=== PATIENT | female | born 1975 | race Caucasian/White ===

== ENCOUNTER 2023-02-18 04:42 | Day surgery (SDC) | payer OTHER ==
[2023-02-11 10:36] VITALS: BMI 30.7
[2023-02-18] MEDS ORDERED: PROPOFOL 20 ML ONE (07:27)
[2023-02-18] MEDS ORDERED: LIDOCAINE HCL 1%, 10 MG/ML (20ML VIAL) ONE (07:28)
[2023-02-18] MEDS ORDERED: METHYLENE BLUE 50 MG/10 ML AMPUL ONE (07:28)
[2023-02-18] MEDS ORDERED: MIDAZOLAM HCL 2 MG/2 ML SINGLE DOSE VIAL ONE (07:28)
[2023-02-18] MEDS ORDERED: ROCURONIUM BROMIDE 50 MG/5 ML SYRINGE ONE (07:28)
[2023-02-18] MEDS ORDERED: ISOSULFAN BLUE 50 MG/5 ML VIAL SQ ONE (07:28)
[2023-02-18] MEDS ORDERED: DEXAMETHASONE SOD PHOSPHATE 4 MG/1 ML VIAL ONE (11:28)
[2023-02-18] MEDS ORDERED: ceFAZolin SODIUM 1 GM VIAL ONE ×2 (11:28→18:03)
[2023-02-18] MEDS ORDERED: ceFAZolin SODIUM 1 GM VIAL IVPB ONE (11:30)
[2023-02-18] MEDS ORDERED: ONDANSETRON 4 MG/2 ML VIAL IVPB PRN (12:38)
[2023-02-18] MEDS ORDERED: ACETAMINOPHEN 1000 MG/100 ML BAG IVPB ONE (14:19)
[2023-02-18] MEDS ORDERED: PROMETHAZINE HCL 25 MG/1 ML VIAL IVPB PRN (14:19)
[2023-02-18] MEDS ORDERED: ONDANSETRON 4 MG/2 ML VIAL IVPUSH PRN (14:19)
[2023-02-18] MEDS ORDERED: ACETAMINOPHEN INJECTION 100 ML IVPB ONE (14:25)
[2023-02-18] MEDS ORDERED: LACTATED RINGERS SOLUTION 1,000 ML IV SCH (14:30)
[2023-02-18] MEDS: LACTATED RINGERS SOLUTION 1,000 ML/1,000 ML INFUS.BAG IV SCH (18:06)
[2023-02-18] MEDS: CEFAZOLIN 1 GM in DEXTROSE 5%-WATER 100 ML IVPB SCH (18:07)
[2023-02-19] MEDS: CEFAZOLIN 1 GM in DEXTROSE 5%-WATER 100 ML IVPB SCH ×2 (01:43→09:55)
[2023-02-19] MEDS: ACETAMINOPHEN 500 MG TABLET (FP) PO PRN ×3 (02:08→21:54)
[2023-02-19] MEDS: LACTATED RINGERS SOLUTION 1,000 ML/1,000 ML INFUS.BAG IV SCH ×2 (12:45→20:01)
[2023-02-19 18:59] VITALS: RESP 18
[2023-02-20] MEDS: ACETAMINOPHEN 500 MG TABLET (FP) PO PRN ×2 (06:51→14:15)
[2023-02-20] MEDS: LACTATED RINGERS SOLUTION 1,000 ML/1,000 ML INFUS.BAG IV SCH ×2 (09:28→14:14)
[2023-02-20 14:20] VITALS: BP 125/81; PULSE 84; TEMP 100
== END 2023-02-20 15:05 | disposition home or self-care (01) ==
LOC: JASU-SURG 04:42 → JASUSAT 04:42 → J6S 17:28 → JASUSAT 02-20 15:05
PROVIDERS: ATTEND Surgery
PROC: 0HTT0ZZ Resection of Right Breast, Open Approach (ICD-10-PCS; principal; 2023-02-18 08:00)
PROC: 0HRT0JZ Replacement of Right Breast with Synthetic Substitute, Open Approach (ICD-10-PCS; 2023-02-18 08:00)
PROC: 07B50ZX Excision of Right Axillary Lymphatic, Open Approach, Diagnostic (ICD-10-PCS; 2023-02-18 08:00)
PROC: C71L1ZZ Planar Nuclear Medicine Imaging of Upper Chest Lymphatics using Technetium 99m (Tc-99m) (ICD-10-PCS; 2023-02-18 08:00)
DX: C50.911 Malignant neoplasm of unspecified site of right female breast (principal)
CPT/HCPCS: 36415; 78195-TC; 84703; 86850; 86900; 86901; 88307-TC; 88331-TC; 88342-TC; 94760; A9541; C1789; Q4116; Q9968